=== PATIENT | female | born 1960 | race Caucasian/White ===

== ENCOUNTER → 2016-09-06 | Outpatient (CLI) | payer BC | LOC: MC.RAD 14:12 | DX: Z12.31 Encounter for screening mammogram for malignant neoplasm of breast (principal) ==

== ENCOUNTER 2017-10-13 07:09 | Day surgery (SDC) | payer BC ==
[~2017-10-13] VITALS: Ht 167.6 cm; Wt 77.1 kg
[2017-10-13 07:32] VITALS: BP 134/81; PULSE 78; TEMP 98.1
[2017-10-13] MEDS ORDERED: PRINIVIL10 MG PO (07:35)
[2017-10-13] MEDS ORDERED: ZOCOR 20MG20 MG PO (07:35)
[2017-10-13] MEDS ORDERED: ASPIRIN 81M81 MG/TA2 PO (07:36)
[2017-10-13 08:55] VITALS: BP 116/94; PULSE 70; TEMP 97.7
[2017-10-13 09:00] VITALS: BP 104/75; PULSE 63
[2017-10-13 09:15] VITALS: BP 112/74; PULSE 66
[2017-10-13 12:29] VITALS: BP 98/70; PULSE 63
== END 2017-10-13 09:20 | disposition home or self-care (01) ==
LOC: SDCO 07:09
DX: Z12.11 Encounter for screening for malignant neoplasm of colon (principal); D12.0 Benign neoplasm of cecum; D12.8 Benign neoplasm of rectum; E78.00 Pure hypercholesterolemia, unspecified; Z86.010 Personal history of colon polyps
CPT/HCPCS: J2250; J3010; J7030

== ENCOUNTER → 2017-11-21 | Outpatient (CLI) | payer BC ==
[~2017-11-21] MED LIST: ASPIRIN 81M81 MG/TA2 PO; PRINIVIL10 MG PO; ZOCOR 20MG20 MG PO
== END ==
LOC: MC.RAD 10-27 14:00
DX: Z12.31 Encounter for screening mammogram for malignant neoplasm of breast (principal)

== ENCOUNTER → 2019-02-19 | Outpatient (CLI) | payer BC | LOC: MC.RAD 09:31 | DX: Z12.31 Encounter for screening mammogram for malignant neoplasm of breast (principal) ==